=== PATIENT | female | born 2000 | race Caucasian/White ===

== ENCOUNTER 2022-07-29 17:27 | Outpatient (CLI) | payer OTHER ==
[2022-07-31 08:09] LABS: HBsAG SCREEN Negative (Negative); VARICELLA-ZOSTER AB IGG 496 index (Immune >165)
== END 2022-07-29 17:28 | disposition home or self-care (01) ==
LOC: LAB.N 17:27
PROVIDERS: ATTEND Nurse Practitioner Obstetrics & Gynecology
DX: Z01.84 Encounter for antibody response examination (principal)
CPT/HCPCS: 81599; 86317; 86787; 87340